=== PATIENT | male | born 1960 | race Caucasian/White ===

== ENCOUNTER 2019-12-21 07:59 | Outpatient (CLI) | payer OTHER ==
[2019-12-21 08:42] LABS: THYROID STIMULATING HORMONE 2.22 uIU/mL (0.34-5.60)
[2019-12-21 08:43] LABS: FREE T3 3.38 pg/mL (2.5-3.9)
[2019-12-21 08:44] LABS: FREE T4 (FREE THYROXINE) 0.77 ng/dL (0.58-1.64)
== END 2019-12-21 08:00 | disposition home or self-care (01) ==
LOC: LAB 07:59
PROVIDERS: ATTEND Internal Medicine Endocrinology, Diabetes & Metabolism
DX: E03.8 Other specified hypothyroidism (principal)
CPT/HCPCS: 36415; 84439; 84443; 84481